=== PATIENT | female | born 1980 | race American Indian/Alaskan Native ===

== ENCOUNTER 2018-05-29 09:54 | Emergency (ER) | payer SELFPAY ==
[2018-05-29] MEDS ORDERED: NACL 0.9% 1000 ML 1,000 ML IV ONE (10:41)
[2018-05-29 11:04] LABS: Basophils % (Auto) 0.2 % (0.0-1.8); Hematocrit 41.7 % (30.3-42.9); Hemoglobin 14.2 gm/dl (10.1-14.3); Mean Corpuscular HGB Conc 34 % (30-34); Mean Corpuscular Hemoglobin 29 pg (28-32); Mean Corpuscular Volume 87 fl (79-97); Monocytes # (Auto) 0.5 K/mm3 (0.0-0.8); Monocytes % (Auto) 3.9 % (0.0-7.3); Platelet Count 242 K/mm3 (140-440); Red Blood Count 4.81 M/mm3 (3.65-5.03); Red Cell Distribution Width 13.2 % (13.2-15.2)
[2018-05-29 11:23] LABS: Creatine Kinase MB < 1.0 ng/mL (0.0-4.0)
--- NOTE | 2018-05-29 11:23 | Emergency Department Report ---
ED Palpitations HPI - General Chief Complaint: Arrhythmia/Palpitations Stated Complaint: CHEST FLUTTER Time Seen by Provider: 05/29/18 10:40 Source: patient, EMS Mode of arrival: Ambulatory Limitations: No Limitations - History of Present Illness Initial Comments: Ms. Millan is 38 yo female who presents with palpitations since last night. She has intermittent "heart fluttering". She called EMS today because she needed to be checked out. Heart rate was 140 beats a minute according to EMS report. No Previous history of heart disease. She does not have a history of any medical conditions. She has not has a physical exam in quite some time. Otherwise she denies chest pain. Denies leg pain. Denies shortness of breath. However she does say that she was a heavy drinker up until 4 months ago. She stopped drinking alcohol in December. She also stopped smoking tobacco at that time. She was drinking up to 6 beers per day. She does not use recreational drugs. Her sister has a hx of arrhythmia and thyroid disease. Her mother also has a history of enlarged heart. She is having regular menstrual cycles. She's had 2 vaginal deliveries. She also has had a tubal ligation. Complaint: rapid heart beat, "heart racing" -: Gradual, Last night Context: occured during rest Arrythmia History: other (no previous hx) Associated Symptoms: denies other symptoms - Related Data Allergies Allergy/AdvReac Type Severity Reaction Status Date / Time No Known Allergies Allergy Unverified 05/29/18 13:35 ED Review of Systems ROS: Stated complaint: CHEST FLUTTER Other details as noted in HPI Comment: All other systems reviewed and negative Constitutional: denies: fever, malaise Respiratory: denies: cough Cardiovascular: palpitations. denies: chest pain ED Past Medical Hx - Past Medical History Previous Medical History?: No - Surgical History Past Surgical History?: No - Family History Family history: other (arrhythmia, enlarged heart, thyroid disease) - Social History Smoking Status: Former Smoker Substance Use Type: None ED Physical Exam - General Limitations: No Limitations General appearance: alert, in no apparent distress - Head Head exam: Present: atraumatic, normocephalic - Eye Eye exam: Present: normal appearance - ENT ENT exam: Present: mucous membranes moist - Neck Neck exam: Present: normal inspection. Absent: tenderness, meningismus - Respiratory Respiratory exam: Present: normal lung sounds bilaterally. Absent: respiratory distress, wheezes, rales, rhonchi - Cardiovascular Cardiovascular Exam: Present: normal rhythm, tachycardia, normal heart sounds. Absent: systolic murmur, diastolic murmur, rubs, gallop - GI/Abdominal GI/Abdominal exam: Present: soft, normal bowel sounds. Absent: distended, tenderness, guarding, rebound - Extremities Exam Extremities exam: Present: normal inspection - Back Exam Back exam: Present: normal inspection - Neurological Exam Neurological exam: Present: alert, oriented X3 - Psychiatric Psychiatric exam: Present: normal affect, normal mood - Skin Skin exam: Present: warm, dry, intact, normal color. Absent: rash ED Course Vital Signs 05/29/18 10:28 Temperature 98.7 F Pulse Rate 100 H Respiratory 16 Rate Blood Pressure 124/80 O2 Sat by Pulse 100 Oximetry ED Medical Decision Making - Lab Data Result diagrams: 05/29/18 10:46 05/29/18 10:46 Laboratory Results - last 24 hr 05/29/18 05/29/18 05/29/18 10:46 10:46 10:46 WBC 12.7 H RBC 4.81 Hgb 14.2 Hct 41.7 MCV 87 MCH 29 MCHC 34 RDW 13.2 Plt Count 242 Lymph % (Auto) 8.0 L [place] % (Auto) 3.9 Eos % (Auto) 0.0 Baso % (Auto) 0.2 Lymph # 1.0 L [place] # 0.5 Eos # 0.0 Baso # 0.0 Seg Neutrophils % 87.9 H Seg Neutrophils # 11.1 H D-Dimer < 135 Sodium 138 Potassium 3.7 Chloride 103.2 Carbon Dioxide 26 Anion Gap 13 BUN 10 Creatinine 0.7 Estimated GFR > 60 BUN/Creatinine Ratio 14 Glucose 156 H Calcium 10.3 H Magnesium 2.00 Total Bilirubin 0.20 AST 18 ALT 20 Alkaline Phosphatase 86 Total Creatine Kinase 108 CK-MB (CK-2) < 1.0 CK-MB (CK-2) Rel Index 0.9 Troponin T < 0.010 Total Protein 7.7 Albumin 4.2 Albumin/Globulin Ratio 1.2 TSH HCG, Qual 05/29/18 05/29/18 10:46 10:46 WBC RBC Hgb Hct MCV MCH MCHC RDW Plt Count Lymph % (Auto) [place] % (Auto) Eos % (Auto) Baso % (Auto) Lymph # [place] # Eos # Baso # Seg Neutrophils % Seg Neutrophils # D-Dimer Sodium Potassium Chloride Carbon Dioxide Anion Gap BUN Creatinine Estimated GFR BUN/Creatinine Ratio Glucose Calcium Magnesium Total Bilirubin AST ALT Alkaline Phosphatase Total Creatine Kinase CK-MB (CK-2) CK-MB (CK-2) Rel Index Troponin T Total Protein Albumin Albumin/Globulin Ratio TSH 1.260 HCG, Qual Negative - EKG Data 05/29/18 12:56 EKG obtained at 1213 Rate 95 beats minute normal sinus rhythm normal axis normal intervals no delta wave no ST elevation normal ID interval no signs of pericarditis - Medical Decision Making Ms. Escobedo presents with heart fluttering and palpitations rest heartbeat. She has sinus tachycardia seen on EKG performed by EMS. She had sinus tachycardia on the monitor. Differential diagnosis includes paroxysmal atrial fibrillation , atrioventricular sanna reentry tachycardia, sinus tachycardia due to thyroid disease or nicotine withdrawal, EKG does not show evidence of pericarditis. Labs were reviewed. Normal d-dimer. Normal TSH. No . Slight elevation nonspecific white blood cell count I discussed case with funeral service apprentice Dr. Evans. He recommended beta kely and outpatient evaluation. Prescription for metoprolol tartrate 25 mg once a day provided Critical care attestation.: If time is entered above; I have spent that time in minutes in the direct care of this critically ill patient, excluding procedure time. ED Disposition Clinical Impression: Tachycardia, Palpitations Disposition: DC-01 TO HOME OR SELFCARE Is pt being admited?: No Does the pt Need Aspirin: No Condition: Stable Instructions: Palpitations (ED) Additional Instructions: Please call for a cardiology appointment. Referrals: CHENG EVANS MD [Staff Physician] - 3-5 Days Time of Disposition: 14:31
[2018-05-29 11:25] LABS: Alanine Aminotransferase 20 units/L (7-56); Albumin 4.2 g/dL (3.9-5); BUN/Creatinine Ratio 14; Blood Urea Nitrogen 10 mg/dL (7-17); Calcium 10.3 mg/dL (8.4-10.2); Hemolysis Index 2
--- NOTE | 2018-05-29 11:59 | XRay Report ---
AP CHEST: HISTORY: Dysrhythmia AP view of the chest demonstrates a normal mediastinal and cardiac contour with clear lungs and normal bony and soft tissue structures. IMPRESSION: Unremarkable AP chest.
[2018-05-29 13:19] LABS: Bacteria,Urine 4+ /HPF (Negative); Bilirubin,Urine NEG (Negative); Blood,Urine NEG (Negative); Color,Urine Yellow (Yellow); Mucus,Urine FEW /HPF; Protein,Urine <15 mg/dL mg/dL (Negative); Urobilinogen,Urine < 2.0 mg/dL (<2.0)
[2018-05-29 14:40] LABS: Amphetamine Screen,Urine PRESUMPTIVE NEGATIVE; Benzodiazepines Screen,Urine PRESUMPTIVE NEGATIVE; Cannabinoid Screen,Urine PRESUMPTIVE NEGATIVE; Cocaine Screen,Urine PRESUMPTIVE NEGATIVE; Methadone Screen,Urine PRESUMPTIVE NEGATIVE; Opiate Screen,Urine PRESUMPTIVE NEGATIVE
[2018-05-29 15:14] VITALS: BP 128/85
== END 2018-05-29 15:15 | disposition home or self-care (01) ==
LOC: ED 09:54
DX: R00.0 Tachycardia, unspecified (principal); R00.2 Palpitations; Z87.891 Personal history of nicotine dependence
CPT/HCPCS: 36415; 71045; 80053; 80307; 81001; 82550; 82553; 83735; 84443; 84484; 84703; 85025; 85379; 93005; 93010; 99284; J7030